=== PATIENT | male | born 2000 | race Caucasian/White ===

== ENCOUNTER 2020-10-01 02:07 | Emergency (ER) | payer OTHER, SELFPAY ==
[2020-10-01 02:12] VITALS: BP 134/94; PULSE 95; RESP 18; TEMP 36.8; O2SAT 100
[2020-10-01] MEDS: ONDANSETRON HCL ODT 4 MG TABLET PO (02:47)
[2020-10-01] MEDS: KETOROLAC (*BKC) 60 MG/2 ML VIAL IM (02:47)
[2020-10-01] MEDS: HYDROmorphone HCL INJ (*CRX) 1 MG/ML SYR 0.5 MG IM (02:48)
--- NOTE | 2020-10-01 02:54 | ED.LOWEXIN ---
HPI - Extremity Injury (Lower) General Chief Complaint: Recheck/Abnormal Lab/Rx Stated Complaint: post op pain Time Seen by Provider: 10/01/20 02:18 Source: patient Mode of arrival: ambulatory Limitations: no limitations History of Present Illness HPI Narrative: This patient is a 20 year old male who presents POD 0 s/p left achilles tendon repair for evaluation of pain. He states he had surgery on his left leg less than 24 hours ago. He reports he had a regional block to his leg, and he did not regain feeling until 1030 pm tonight. He reports he developed severe pain and he took oxycodone at 1030 pm. He reports he still has severe pain. His surgery was performed by a Dr. Rashi Toro in [place]. He has not attempted to call . He denies fever or chills. Related Data Allergies Allergy/AdvReac Type Severity Reaction Status Date / Time No Known Allergies Allergy Verified 10/01/20 02:11 Review of Systems Review of Systems: All systems reviewed & are unremarkable except as noted in HPI and below Constitutional: Constitutional: Denies chills and Denies fever(s) Cardiovascular: Cardiovascular: Denies chest pain Respiratory: Respiratory: Denies dyspnea Gastrointestinal: Gastrointestinal: Denies nausea and Denies vomiting Musculoskeletal: Musculoskeletal: Reports arthralgias Neurologic: Denies focal weakness and Denies weakness PMFSH Past Medical History Medical History (Updated 10/01/20 @ 03:47 by Ana Coreas MD) Patient denies medical problems Surgical History Surgical History (Updated 10/01/20 @ 03:39 by Ana Coreas MD) S/P Achilles tendon repair Social History Social History (Updated 10/01/20 @ 03:39 by Ana Coreas MD) Smoking status: Never smoker Gender identity (if verbalized by the patient): Male Exam Const: General: no acute distress and alert Orientation/consciousness: patient oriented x3 HENMT: Head: normocephalic and atraumatic Face and sinus: face symmetric Mouth: Yes Normal oral and palatal mucosa present Resp: Effort & Inspection: normal respiratory effort Neuro: General: patient oriented x3 and moves all extremities Extrem: Other: left foot in short leg splint in plantar flexion. PAtient able to wiggle toes, cap refill less than 3 sec, no swelling to toes, leg appears soft Psych: Mental Status: mental status grossly normal Affect: normal affect Course Reevaluation(s) Reevaluation #1: PAtient reports his pain is better. He will call his surgeon this morning. Date: 10/01/20 Time: 03:41 Vital Signs Vital signs: Vital Signs Temperature 98.2 F 10/01/20 02:12 Pulse Rate 95 10/01/20 02:12 Respiratory Rate 18 10/01/20 02:12 Blood Pressure 134/94 H 10/01/20 02:12 Pulse Oximetry 100 10/01/20 02:12 Temperature 98 F 10/01/20 03:55 Pulse Rate 66 10/01/20 03:55 Respiratory Rate 16 10/01/20 03:55 Blood Pressure 130/77 10/01/20 03:55 Pulse Oximetry 98 10/01/20 03:55 Discharge Plan Discharge Clinical Impression: Post-operative pain Patient Disposition: Home, Self-Care Condition: Stable Instructions: Achilles Tendon Repair (DC) Additional Instructions: Please call your orthopedic surgeon this morning. Keep your leg elevated. Take ibuprofen with your pain medication. Take your percocet in 3 hours. Take as prescribed. Follow-up/Referrals: rashi toro [Other] - 1 Day PHYSICIAN,CANAL STRUCTURE OPERATOR [Primary Care Provider] -
[2020-10-01 03:55] VITALS: BP 130/77; PULSE 66; RESP 16; TEMP 36.6; O2SAT 98
== END 2020-10-01 04:00 | disposition home or self-care (01) ==
PROVIDERS: Emergency Provider General Practice
DX: G89.18 Other acute postprocedural pain (principal); M79.605 Pain in left leg
CPT/HCPCS: 96372; 99284; A9270; J1170; J1885